=== PATIENT | male | born 1940 | race Caucasian/White ===

== ENCOUNTER → 2018-03-12 | Outpatient (CLI) | payer BC ==
[~2018-03-12] MED LIST: REGADENOSON 0.4 MG/5 ML DISP.SYRIN. IV
== END | disposition home or self-care (01) ==
LOC: NM 10:29
DX: I73.9 Peripheral vascular disease, unspecified (principal); M25.512 Pain in left shoulder; I12.9 Hypertensive chronic kidney disease with stage 1 through stage 4 chronic kidney disease, or unspecified chronic kidney disease; E11.21 Type 2 diabetes mellitus with diabetic nephropathy; N18.3 Chronic kidney disease, stage 3 (moderate); E78.00 Pure hypercholesterolemia, unspecified; E78.5 Hyperlipidemia, unspecified; I25.10 Atherosclerotic heart disease of native coronary artery without angina pectoris; Z79.4 Long term (current) use of insulin; Z87.891 Personal history of nicotine dependence
CPT/HCPCS: 78452; 93017; 93925; 96374; 96376; A9500

== ENCOUNTER 2019-01-19 03:44 | Emergency (ER) | payer BC ==
[~2019-01-19] VITALS: Ht 165.1 cm; Wt 98.0 kg
[~2019-01-19 03:44] MED LIST changes: +AMLO10TA4 PO; +AMLO5TAB10 PO; +ASCO100065 PO; +ASPI-252 PO; +ASPI-630 PO; +ATOR40TA PO; +INSU100C4 SQ; +INSU100V8 SQ; +Lisinopril PO; +METO25TA4 PO; +MULT-245 PO; +Metoprolol Tartrate PO; +OMEG1CAP6 PO; +Oxycodone Hcl/Acetaminophen PO; +PIOG30TA62 PO; +POLY119P4 PO; +PRAV80TA2 PO; -REGADENOSON 0.4 MG/5 ML DISP.SYRIN. IV
[2019-01-19 03:59] VITALS: BP 180/92
--- NOTE | 2019-01-19 04:06 | PHYS DOC ---
Past Medical History Past Medical History: CAD, Renal Disease Past Surgical History: Cholecystectomy, Other Additional Past Surgical Histo: cardiac stent Smoking: Quit Greater Than 1 Year Alcohol Use: None Drug Use: None Adult General Chief Complaint Chief Complaint: RIB PAIN HPI HPI Patient is a 78 year old male who presents with left chest injury. Patient was at a rock climbing gym, stepping off of a thick foam pad and missed the step. He fell injuring his left chest at approximately 1300 yesterday. Initially it did not hurt however pain has been worsening over time. He gets worse with deep breaths as well as a cough. Patient has taken no medicine for pain. He reports that he has stage III kidney disease and is not allowed to take anti- inflammatories because of this.[] Review of Systems Review of Systems Constitutional: Denies fever or chills [] Eyes: Denies change in visual acuity, redness, or eye pain [] HENT: Denies nasal congestion or sore throat [] Respiratory: Denies cough or shortness of breath [] Cardiovascular: No palpitations. No additional information not addressed in HPI [] GI: Denies abdominal pain, nausea, vomiting, bloody stools or diarrhea [] : Denies dysuria or hematuria [] Musculoskeletal: Denies back pain or joint pain [] Integument: Denies rash or skin lesions [] Neurologic: Denies headache, focal weakness or sensory changes [] Endocrine: Denies polyuria or polydipsia [] All other systems were reviewed and found to be within normal limits, except as documented in this note. Current Medications Current Medications Current Medications Medications (Trade) Dose Ordered Amg [facility] Start Time Stop Time Status Last Admin Dose Admin Acetaminophen (Tylenol) 500 mg 1X ONCE 01/19/19 04:30 01/19/19 04:31 01/19/19 04:13 500 MG Allergies Allergies Allergies Coded Allergies Type Severity Reaction Last Updated Verified codeine Adverse Reaction Intermediate Nausea and Vomiting 08/24/15 Yes Physical Exam Physical Exam Constitutional: Well developed, well nourished, no acute distress, non-toxic appearance. [] HENT: Normocephalic, atraumatic, bilateral external ears normal, oropharynx moist, no oral exudates, nose normal. [] Eyes: PERRLA, EOMI, conjunctiva normal, no discharge. [] Neck: Normal range of motion, no tenderness, supple, no stridor. [] Cardiovascular:Heart rate regular rhythm, no murmur [] Lungs & Thorax: Bilateral breath sounds clear to auscultation. There is tenderness to palpation in the left anterior axillary line at approximately the sixth to seventh rib. There is no crepitus. No subcutaneous emphysema. No flail segment noted with respirations. [] Abdomen: Bowel sounds normal, soft, no tenderness, no masses, no pulsatile masses. No splenic tenderness[] Skin: Warm, dry, no erythema, no rash. [] Back: No tenderness, no CVA tenderness. [] Extremities: No tenderness, no cyanosis, no clubbing, ROM intact, no edema. [] Neurologic: Alert and oriented X 3, normal motor function, normal sensory function, no focal deficits noted. [] Psychologic: Affect normal, judgement normal, mood normal. [] Current Patient Data Vital Signs Vital Signs Date Time Temp Pulse Resp B/P (MAP) Pulse Ox O2 Delivery O2 Flow Rate FiO2 01/19/19 03:59 98.2 84 16 180/92 (121) 97 Nasal Cannula 2.0 98.2 EKG EKG [] Radiology/Procedures Radiology/Procedures Chest x-ray and rib x-rays shows no infiltrate, no effusion, no hemothorax, and no pneumothorax[] Course & Med Decision Making Course & Med Decision Making Pertinent Labs and Imaging studies reviewed. (See chart for details) ED course: Patient arrived, was placed in bed, and tolerated exam well. Patient was initially just requesting to have his ribs "bound up." Explained to him that this treatment is no longer the standard of care and he grudgingly accepted pain medicine. Since he drove himself to the emergency department will forego narcotic pain medicine. Patient is not actually the allergic to codeine, he gets nausea and vomiting. He was transported to and from x-ray with any complications. After return of the imaging findings, these were discussed with the patient who voiced understanding. All questions were answered. Patient was discharged in improved condition. Medical decision making: There is no evidence of pneumothorax, hemothorax, pneumonia, nor significant rib injury[] Dragon Disclaimer Dragon Disclaimer This electronic medical record was generated, in whole or in part, using a voice recognition dictation system. Departure Departure Impression: Primary Impression: Rib injury Disposition: HOME, SELF-CARE Condition: IMPROVED Referrals: VONNIE HUNTLEY MD (PCP) Follow-up in 2 days Patient Instructions: Rib Contusion Additional Instructions: Follow-up with your regular doctor in 2 days. Use the incentive spirometer at least every hour while awake. Return to the ER if worsening pain, difficulty breathing, or any other concerns Scripts Tramadol Hcl (TRAMADOL HCL) 50 Mg Tablet 50 MG PO Q6HRS PRN for PAIN, #20 TAB Prov: PORITA ORNELAS DO 01/19/19 Acetaminophen (TYLENOL) 325 Mg Tablet 1-2 TAB PO QID, #60 TAB 0 Refills Prov: PORTIA ORNELAS DO 01/19/19 PORTIA ORNELAS DO Jan 19, 2019 04:06
[2019-01-19] MEDS ORDERED: ACETAMINOPHEN 500 MG TABLET PO ONE (04:30)
[2019-01-19] MEDS ORDERED: ACET325T9 PO (04:39)
[2019-01-19] MEDS ORDERED: TRAM50TA PO (04:39)
--- NOTE | 2019-01-19 07:35 | RAD ---
Left RIBS AP and oblique views with one view chest HISTORY: Fall, left mid to lower rib pain AP view was taken of the chest. There is no pneumothorax or pleural effusion. The patient is not taken a deep inspiration. There are changes from bypass surgery. There are no acute infiltrates. 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 An acute rib fracture is not identified. IMPRESSION: 1. No acute chest disease. 2. No rib fracture noted. Electronically signed by: Jewel Hester MD (01/19/2019 7:32 AM) [facility]
== END 2019-01-19 04:58 | disposition home or self-care (01) ==
LOC: ER 03:44
DX: S29.9XXA Unspecified injury of thorax, initial encounter (principal); I25.10 Atherosclerotic heart disease of native coronary artery without angina pectoris; Z87.891 Personal history of nicotine dependence; Z95.5 Presence of coronary angioplasty implant and graft; Z88.5 Allergy status to narcotic agent; W10.8XXA Fall (on) (from) other stairs and steps, initial encounter; Y93.31 Activity, mountain climbing, rock climbing and wall climbing; Y92.39 Other specified sports and athletic area as the place of occurrence of the external cause; Y99.8 Other external cause status
CPT/HCPCS: 71101; 99284

== ENCOUNTER → 2020-04-06 | Outpatient (CLI) | payer BC ==
[~2020-04-06] MED LIST changes: +ACET325T9 PO; +TRAM50TA PO
--- NOTE | 2020-04-06 12:46 | CARD ---
MR#: [id number] Date of Study: 04/06/2020 Ordering Physician: BRENDA MIKE, Referring Physician: BRENDA MIKE, Tech: Arlene Linares [facility] APPROVED REPORT EXAM: Two-dimensional and M-mode echocardiogram with Doppler and color Doppler. Other Information Quality : Good INDICATION Dyspnea Surgery/Intervention CABG: Date: 09/2015 2D DIMENSIONS RVDd3.4 (2.9-3.5cm)Left Atrium(2D)4.2 (1.6-4.0cm) IVSd1.0 (0.7-1.1cm)Aortic Root(2D)3.4 (2.0-3.7cm) LVDd5.4 (3.9-5.9cm)LVOT Diameter2.3 (1.8-2.4cm) PWd0.9 (0.7-1.1cm)LVDs4.2 (2.5-4.0cm) FS (%) 22.4 %SV62.5 ml LVEF(%)44.8 (>50%) Aortic Valve AoV Peak Regis.137.2cm/sAoV VTI29.5cm AO Peak GR.7.5mmHgLVOT Peak Regis.88.1cm/s AO Mean GR.4mmHgAVA (VMAX)2.75cm2 KIRA (VTI)3.10cm2 Mitral Valve MV E Ylrexmok911.9cm/sMV DECEL [id number] MV A Kvnafokb59.6cm/sE/A Ratio1.9 Tricuspid Valve TR P. Onlsdnrr705ug/sRAP UPBKOAGM9ciFn TR Peak Gr.66hlMpUOTV47wuAf Pulmonary Vein S1 Fjmqrfqk02.2cm/sD2 Etairiao959.6cm/s LEFT VENTRICLE The left ventricle is normal size. There is normal left ventricular wall thickness. Left ventricle sy stolic function is mildly impaired. The Ejection Fraction is 45-50%. There is mild global hypokinesis . Transmitral Doppler flow pattern is Grade II-pseudonormal filling dynamics. RIGHT VENTRICLE The right ventricle is normal size. The right ventricular systolic function is normal. ATRIA The left atrium is moderately dilated. The right atrium is mildly dilated. The interatrial septum is intact with no evidence for an atrial septal defect or patent foramen ovale as noted on 2-D or Dopple r imaging. AORTIC VALVE The aortic valve is calcified but opens well. Doppler and Color Flow revealed no significant aortic r egurgitation. There is no significant aortic valvular stenosis. MITRAL VALVE The mitral valve is calcified but opens well. Mitral annular calcification is mild. There is no lissett l valve stenosis. Doppler and Color-flow revealed mild to moderate mitral regurgitation. TRICUSPID VALVE The tricuspid valve is normal in structure and function. Doppler and Color Flow revealed trace tricus pid regurgitation. The PA pressure was estimated at 24 mmHg. There is no tricuspid valve stenosis. PULMONIC VALVE The pulmonic valve is not well visualized. Doppler and Color Flow revealed no pulmonic valvular regur gitation. There is no pulmonic valvular stenosis. GREAT VESSELS The aortic root is normal in size. The ascending aorta is mildly dilated at 3.5 cm. The IVC is normal in size and collapses >50% with inspiration. PERICARDIAL EFFUSION There is no evidence of significant pericardial effusion. Critical Notification Critical Value: No <Conclusion> Left ventricle systolic function is mildly impaired. The Ejection Fraction is 45-50%. There is mild global hypokinesis. Doppler and Color-flow revealed mild to moderate mitral regurgitation. The ascending aorta is mildly dilated at 3.5 cm. Signed by : Brenda Mike, Electronically Approved : 04/06/2020 12:46:13
--- NOTE | 2020-04-06 12:48 | RAD ---
MR#: [id number] Date of Study: 04/06/2020 Ordering Physician: BRENDA MIKE, Referring Physician: BRENDA MIKE, Tech: Leigh Ann Gaming RDMS, RVT, RTR APPROVED REPORT Bilateral Lower Extremity Venous Study for DVT Patient Location: OUT-PATIENT Indications Lower Extremity Edema: Bilateral Findings The bilateral lower extremity deep veins were evaluated for thrombus with color Doppler, spectral and grayscale images. On the right the grayscale images of the common femoral, superficial femoral and popliteal veins do n ot demonstrate any evidence of thrombus and these veins appear to be compressible. The below-knee vei ns were not well visualized but grossly appear to be compressible. Spectral imaging and color Doppler do not reveal any evidence of obstruction to flow with normal respirophasic variation above the knee . Below the knee there is spontaneous flow noted. On the left, the grayscale images of the common femoral, superficial femoral and popliteal veins do n ot demonstrate any evidence of thrombus and these veins appear to be compressible. The below-knee vei ns again were not well visualized but grossly appear to be compressible. Spectral imaging and color D oppler do not reveal any evidence of obstruction to flow with normal respirophasic variation above th e knee. The below-knee veins demonstrate spontaneous flow. Critical Notification Critical Value: No <Conclusion> No evidence of DVT in the BLE Signed by : Brenda Mike, Electronically Approved : 04/06/2020 12:47:41
== END | disposition home or self-care (01) ==
LOC: ECHO 10:54
PROVIDERS: ATTEND Internal Medicine Cardiovascular Disease
DX: I08.0 Rheumatic disorders of both mitral and aortic valves (principal); R60.0 Localized edema
CPT/HCPCS: 93306; 93970

== ENCOUNTER 2021-03-22 13:33 | Emergency (ER) | payer BC ==
[~2021-03-22] VITALS: Ht 165.1 cm; Wt 100.0 kg
[~2021-03-22 13:33] MED LIST changes: +AMLO-186 PO; -AMLO5TAB10 PO; +AMOX1TAB58 PO; +HYDR-2761 PO
[2021-03-22 14:23] VITALS: BP 150/64
--- NOTE | 2021-03-22 15:24 | RAD ---
EXAM: Right femur, 2 views; pelvis and right hip, 3 views. HISTORY: Fall. Pain. COMPARISON: None. FINDINGS: Pelvis and right hip: A frontal view of the pelvis and 2 views of the right hip are obtained. There i s no acute fracture, dislocation or subluxation. There is degenerative change involving the lower lum bar spine. The femoral heads are normal in configuration. There are suspected os acetabula. There are surgical clips within the right hemipelvis. Right femur: 2 views of the right femur are obtained. There is a right knee arthroplasty in expected position. Evaluation for knee effusion is limited due to image projection. There is no evidence of a periprosthetic fracture. IMPRESSION: No acute osseous finding. Electronically signed by: Claire Gottlieb MD (03/22/2021 3:22 PM) [id number]
--- NOTE | 2021-03-22 15:34 | RAD ---
EXAM: Head and cervical spine CT without contrast. HISTORY: Fall. Pain.. TECHNIQUE: Computed tomographic images of the head and cervical spine were obtained without contrast. *One or more of the following individualized dose reduction techniques were utilized for this examina tion: 1. Automated exposure control. 2. Adjustment of the mA and/or kV according to patient size. 3. Use of iterative reconstruction technique. COMPARISON: None. FINDINGS: Head: There is no hemorrhage. There is no mass effect or midline shift. There are scattered areas of hypodensity throughout the cerebral white matter, likely due to chronic small vessel disease. There a re chronic infarcts within the bilateral basal ganglia and right thalamus. There is evidence of lens surgery. The paranasal sinuses and mastoid air cells are unremarkable. No suspicious calvarial lesion is seen. Cervical spine: There is mild reversal cervical lordosis. There is no significant listhesis. There is multilevel endplate remodeling with disc space narrowing, osteophytosis and Schmorl's node formation . There is multilevel facet arthropathy. The combination of degenerative changes results in mild left foraminal stenosis at C2-C3, moderate to severe lateral foraminal and mild central canal stenosis at C3-C4 and C4-C5, moderate right and severe left foraminal and moderate central canal stenosis at C5- C6, and mild right and moderate left foraminal and mild central canal stenosis at C6-C7. IMPRESSION: 1. No acute intracranial finding or evidence of acute cervical spine trauma. 2. Bilateral cerebral white matter changes, likely due to chronic small vessel disease. 3. Small chronic lacunar infarcts within the basal ganglia and right thalamus. 4. 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 Electronically signed by: Claire Gottlieb MD (03/22/2021 3:31 PM) [id number]
--- NOTE | 2021-03-22 16:54 | PHYS DOC ---
Past Medical History Past Medical History: CAD, Cancer, Diabetes-Type II, High Cholesterol, Hy pertension, [place], Renal Disease Additional Past Medical Histor: LEUKEMIA Past Surgical History: Appendectomy, Cholecystectomy, Other Additional Past Surgical Histo: cardiac stent Smoking Status: Former Smoker Alcohol Use: None Drug Use: None General Adult EDM: Chief Complaint: LOWEREXTREMITY INJURY HPI: HPI: Patient is a 80 year old male who presents to the ED today complaining of mild pain to the right femur that began 2 days ago after falling. Patient states the pain is only on palpation. Patient states he has had multiple falls and this is not a new thing for him. Patient states he hit his head done when he fell. Denies any loss of consciousness. Denies any neck pain. Reports the pain is worse on weightbearing. He states he is on a baby aspirin. Review of Systems: Review of Systems: Constitutional: Denies fever or chills. [] Eyes: Denies change in visual acuity. [] HENT: Denies nasal congestion or sore throat. [] Respiratory: Denies cough or shortness of breath. [] Cardiovascular: Denies chest pain or edema. [] GI: Denies abdominal pain, nausea, vomiting, bloody stools or diarrhea. [] : Denies dysuria. [] Musculoskeletal: Reports right femur pain Integument: Denies rash. [] Neurologic: Reports falling and hitting the head, denies focal weakness or sensory changes. [] Endocrine: Denies polyuria or polydipsia. [] Psychiatric: Denies depression or anxiety. [] Heart Score: C/O Chest Pain: N/A Risk Factors: Risk Factors: DM, Current or recent (<one month) smoker, HTN, HLP, family history of CAD, obesity. Risk Scores: Score 0 - 3: 2.5% MACE over next 6 weeks - Discharge Home Score 4 - 6: 20.3% MACE over next 6 weeks - Admit for Clinical Observation Score 7 - 10: 72.7% MACE over next 6 weeks - Early Invasive Strategies Allergies: Allergies: Allergies Coded Allergies Type Severity Reaction Last Updated Verified codeine Adverse Reaction Intermediate Nausea and Vomiting 08/24/15 Yes Physical Exam: PE: Constitutional: Well developed, well nourished, no acute distress, non-toxic appearance. [] HENT: Normocephalic, atraumatic, bilateral external ears normal, oropharynx moist, no oral exudates, nose normal. [] Eyes: PERRLA, EOMI, conjunctiva normal, no discharge. [] Neck: Normal range of motion, no tenderness, supple, no stridor. [] Cardiovascular:Heart rate regular rhythm, no murmur [] Lungs & Thorax: Bilateral breath sounds clear to auscultation [] Abdomen: Bowel sounds normal, soft, no tenderness, no masses, no pulsatile masses. [] Skin: Warm, dry, no erythema, no rash. [] Back: No tenderness, no CVA tenderness. [] Extremities: Bilateral lower extremities with no obvious deformity. Diffuse tenderness on palpation of the right lateral femur, no cyanosis, no clubbing, ROM intact, no edema. [] Neurologic: Alert and oriented X 3, normal motor function, normal sensory function, no focal deficits noted. Cranial nerves II through XII intact Psychologic: Affect normal, judgement normal, mood normal. [] Current Patient Data: Vital Signs: Vital Signs Date Time Temp Pulse Resp B/P (MAP) Pulse Ox O2 Delivery O2 Flow Rate FiO2 03/22/21 14:23 98.1 75 12 150/64 (92) 95 Room Air 98.1 EKG: EKG: [] Radiology/Procedures: Radiology/Procedures: []PROCEDURE: HIP RIGHT 2V WITH PELVIS EXAM: Right femur, 2 views; pelvis and right hip, 3 views. HISTORY: Fall. Pain. COMPARISON: None. FINDINGS: Pelvis and right hip: A frontal view of the pelvis and 2 views of the right hip are obtained. There is no acute fracture, dislocation or subluxation. There is degenerative change involving the lower lumbar spine. The femoral heads are normal in configuration. There are suspected os acetabula. There are surgical clips within the right hemipelvis. Right femur: 2 views of the right femur are obtained. There is a right knee arthroplasty in expected position. Evaluation for knee effusion is limited due to image projection. There is no evidence of a periprosthetic fracture. IMPRESSION: No acute osseous finding. Electronically signed by: Claire Gottlieb MD (03/22/2021 3:22 PM) [id number] DICTATED and SIGNED BY: CLAIRE GOTTLIEB MD DATE: 03/22/21 [id number] 0 PROCEDURE: CT HEAD AND CERVICAL SPINE WO EXAM: Head and cervical spine CT without contrast. HISTORY: Fall. Pain.. TECHNIQUE: Computed tomographic images of the head and cervical spine were obtained without contrast. *One or more of the following individualized dose reduction techniques were utilized for this examination: 1. Automated exposure control. 2. Adjustment of the mA and/or kV according to patient size. 3. Use of iterative reconstruction technique. COMPARISON: None. FINDINGS: Head: There is no hemorrhage. There is no mass effect or midline shift. There are scattered areas of hypodensity throughout the cerebral white matter, likely due to chronic small vessel disease. There are chronic infarcts within the bilateral basal ganglia and right thalamus. There is evidence of lens surgery. The paranasal sinuses and mastoid air cells are unremarkable. No suspicious calvarial lesion is seen. Cervical spine: There is mild reversal cervical lordosis. There is no significant listhesis. There is multilevel endplate remodeling with disc space narrowing, osteophytosis and Schmorl's node formation. There is multilevel facet arthropathy. The combination of degenerative changes results in mild left foraminal stenosis at C2-C3, moderate to severe lateral foraminal and mild central canal stenosis at C3-C4 and C4-C5, moderate right and severe left foraminal and moderate central canal stenosis at C5-C6, and mild right and moderate left foraminal and mild central canal stenosis at C6-C7. IMPRESSION: 1. No acute intracranial finding or evidence of acute cervical spine trauma. 2. Bilateral cerebral white matter changes, likely due to chronic small vessel disease. 3. Small chronic lacunar infarcts within the basal ganglia and right thalamus. 4. 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 Electronically signed by: Claire Gottlieb MD (03/22/2021 3:31 PM) [id number] DICTATED and SIGNED BY: CLAIRE GOTTLIEB MD DATE: 03/22/21 [id number] 0 PROCEDURE: FEMUR RIGHT EXAM: Right femur, 2 views; pelvis and right hip, 3 views. HISTORY: Fall. Pain. COMPARISON: None. FINDINGS: Pelvis and right hip: A frontal view of the pelvis and 2 views of the right hip are obtained. There is no acute fracture, dislocation or subluxation. There is degenerative change involving the lower lumbar spine. The femoral heads are normal in configuration. There are suspected os acetabula. There are surgical clips within the right hemipelvis. Right femur: 2 views of the right femur are obtained. There is a right knee arthroplasty in expected position. Evaluation for knee effusion is limited due to image projection. There is no evidence of a periprosthetic fracture. IMPRESSION: No acute osseous finding. Electronically signed by: Claire Gottlieb MD (03/22/2021 3:22 PM) [id number] DICTATED and SIGNED BY: CLAIRE GOTTLIEB MD DATE: 03/22/21 [id number] 0 Course & Med Decision Making: Course & Med Decision Making Pertinent Labs and Imaging studies reviewed. (See chart for details) This is a 80-year-old male patient presenting to the ED today with right femur pain that began 2 days ago after falling. CT of the head and cervical spine are negative, right hip x-rays including right femur x-rays are negative. Patient himself interested in going home. He lives with his son who assist him. He was discharged to home, follow-up with PCP. William Disclaimer: William Disclaimer: This electronic medical record was generated, in whole or in part, using a voice recognition dictation system. Departure Departure Impression: Primary Impression: Fall Qualified Codes: W19.XXXA - Unspecified fall, initial encounter Additional Impression: Contusion of hip, right Qualified Codes: S70.01XA - Contusion of right hip, initial encounter Disposition: HOME / SELF CARE / HOMELESS Condition: STABLE Referrals: MICHELLE CARDENAS MD (PCP) follow up in the course of this week Patient Instructions: Contusion, [id number], Fall Prevention and Home Safety Additional Instructions: You were evaluated in the emergency room for right femur pain, your right femur x-ray, right hip x-rays including pelvis, CT of the head and cervical spine are negative for any acute findings. Follow-up with your primary care doctor. Apply ice to the affected areas. Come back to the ED at any point symptoms worsen FLORIN ALEXANDER APRN March 22, 2021 16:54
== END 2021-03-22 17:01 | disposition home or self-care (01) ==
LOC: ER 13:33
DX: S70.01XA Contusion of right hip, initial encounter (principal); I25.10 Atherosclerotic heart disease of native coronary artery without angina pectoris; E11.9 Type 2 diabetes mellitus without complications; E78.00 Pure hypercholesterolemia, unspecified; I10 Essential (primary) hypertension; I25.2 Old myocardial infarction; Z87.891 Personal history of nicotine dependence; Z95.5 Presence of coronary angioplasty implant and graft; Z90.89 Acquired absence of other organs; Z90.49 Acquired absence of other specified parts of digestive tract; Z88.5 Allergy status to narcotic agent; W18.39XA Other fall on same level, initial encounter; Y93.89 Activity, other specified; Y92.89 Other specified places as the place of occurrence of the external cause; Y99.8 Other external cause status
CPT/HCPCS: 70450; 72125; 73502; 99285-25

== ENCOUNTER 2021-05-15 09:36 | Emergency (ER) | payer BC ==
[~2021-05-15] VITALS: Ht 175.3 cm; Wt 110.0 kg
[~2021-05-15 09:36] MED LIST changes: +GABA300C18 PO; +INSU100V35 SQ; +PANT40TA77 PO; +Warfarin Per Pharmacy MC
[2021-05-15] MEDS ORDERED: IV NORMAL SALINE 1000ML BAG 1,000 ML IV ONE ×2 (10:30→12:15)
[2021-05-15 11:01] LABS: BASO # 0.1 x10^3/uL (0.0-0.2); BASO % 1 % (0-3); EOS # 0.1 x10^3/uL (0.0-0.7); EOS % 1 % (0-3); HEMATOCRIT 27.4 % (39.0-53.0); HEMOGLOBIN 8.3 g/dL (13.0-17.5); LYMPH # 6.8 x10^3/uL (1.0-4.8); MEAN CORPUSCULAR HEMOGLOBIN 24 pg (25-35); MEAN CORPUSCULAR HGB CONC 30 g/dL (31-37); MEAN CORPUSCULAR VOLUME 81 fL (79-100); MONO # 0.8 x10^3/uL (0.0-1.1); MONO % 7 % (0-9); NEUT # 3.4 x10^3/uL (1.8-7.7); NEUT % 30 % (31-73); PLATELET COUNT 280 x10^3/uL (140-400); RED CELL DISTRIBUTION WIDTH 20.6 % (11.5-14.5); WHITE BLOOD COUNT 11.2 x10^3/uL (4.0-11.0)
[2021-05-15 11:21] LABS: ALBUMIN 2.2 g/dL (3.4-5.0); ALBUMIN/GLOBULIN RATIO 0.6 (1.0-1.7); CREATININE 0.8 mg/dL (0.7-1.3); GFR 93.3; MAGNESIUM 2.1 mg/dL (1.8-2.4); POTASSIUM 4.1 mmol/L (3.5-5.1); TOTAL BILIRUBIN 0.8 mg/dL (0.2-1.0); TOTAL PROTEIN 5.9 g/dL (6.4-8.2)
[2021-05-15 11:30] LABS: CALCIUM 12.1 mg/dL (8.5-10.1)
[2021-05-15 12:06] LABS: % ATYL 4 % (0-0); % BANDS 4 % (0-9); % EOS 1 % (0-5); % LYMPHS 57 % (24-48); % MONOS 8 % (0-10); % MYELOS 1 % (0-0); % SEGS 23 % (35-66); NUCLEATED RBC 1
[2021-05-15 12:07] LABS: PLT ESTIMATE ADEQUATE (ADEQUATE)
[2021-05-15 12:14] LABS: % OTHERS 0 % (0-0); SMUDGE CELLS PRESENT
--- NOTE | 2021-05-15 14:12 | PHYS DOC ---
Past Medical History Past Medical History: CAD, Cancer, Diabetes-Type II, High Cholesterol, Hypertension, [place], Renal Disease Additional Past Medical Histor: Neuropathy, Leukemia Past Surgical History: Coronary Bypass Surgery, Other Additional Past Surgical Histo: Unknown surgery history Smoking Status: Former Smoker Alcohol Use: None Drug Use: None General Adult EDM: Chief Complaint: WEAKNESS/GENERALIZED HPI: HPI: Patient is a 81 year old male who was brought here for [facility] for generalized weakness and dehydration. Patient has a history of coronary artery disease, diabetic, hypertension, CHF, dementia, at baseline is nonverbal, history of PE, was in rehab for about 5 weeks now, he was scheduled to be released from the rehab center to be taken home so that he can be entered into hospice care. Patient's son wanted him to come to ER for IV fluids first because he is concerned that patient is dehydrated. His son stated that patient had not been eating or drinking much lately. Patient is bedbound. Review of Systems: Review of Systems: Not able to obtain due to patient condition Heart Score: C/O Chest Pain: N/A Risk Factors: Risk Factors: DM, Current or recent (<one month) smoker, HTN, HLP, family history of CAD, obesity. Risk Scores: Score 0 - 3: 2.5% MACE over next 6 weeks - Discharge Home Score 4 - 6: 20.3% MACE over next 6 weeks - Admit for Clinical Observation Score 7 - 10: 72.7% MACE over next 6 weeks - Early Invasive Strategies Current Medications: Current Medications Medications (Trade) Dose Ordered Sig/[facility] Start Time Stop Time Status Last Admin Dose Admin Sodium Chloride 1,000 ml @ 1,000 mls/hr 1X ONCE 05/15/21 12:15 05/15/21 13:14 DC 05/15/21 13:26 1,000 MLS/HR Allergies: Allergies: Allergies Coded Allergies Type Severity Reaction Last Updated Verified codeine Adverse Reaction Intermediate Nausea and Vomiting 08/24/15 Yes Physical Exam: PE: Constitutional: Well developed, well nourished, no acute distress, non-toxic appearance. [] HENT: Normocephalic, atraumatic, bilateral external ears normal, oropharynx dry , no oral exudates, nose normal. [] Eyes: PERRLA, EOMI, conjunctiva normal, no discharge. [] Neck: Normal range of motion, no tenderness, supple, no stridor. [] Cardiovascular:Heart rate regular rhythm, no murmur [] Lungs & Thorax: Bilateral breath sounds clear to auscultation [] Abdomen: Bowel sounds normal, soft, no tenderness, no masses, no pulsatile masses. [] Skin: Warm, dry, no erythema, no rash. Appear pale Back: No tenderness, no CVA tenderness. [] Extremities: No tenderness, no cyanosis, bilateral lower extremity edema, pitting, 2+ Neurologic: Patient is awake alert, however he is nonverbal. Patient was tracking, responsive to pain Psychologic: Flat affect Current Patient Data: Labs: Laboratory Tests Test 05/15/21 10:40 White Blood Count 11.2 x10^3/uL (4.0-11.0) H Red Blood Count 3.40 x10^6/uL (4.30-5.70) L Hemoglobin 8.3 g/dL (13.0-17.5) L Hematocrit 27.4 % (39.0-53.0) L Mean Corpuscular Volume 81 fL (79-100) Mean Corpuscular Hemoglobin 24 pg (25-35) L Mean Corpuscular Hemoglobin Concent 30 g/dL (31-37) L Red Cell Distribution Width 20.6 % (11.5-14.5) H Platelet Count 280 x10^3/uL (140-400) Neutrophils (%) (Auto) 30 % (31-73) L Lymphocytes (%) (Auto) 61 % (24-48) H Monocytes (%) (Auto) 7 % (0-9) Eosinophils (%) (Auto) 1 % (0-3) Basophils (%) (Auto) 1 % (0-3) Neutrophils # (Auto) 3.4 x10^3/uL (1.8-7.7) Lymphocytes # (Auto) 6.8 x10^3/uL (1.0-4.8) H Monocytes # (Auto) 0.8 x10^3/uL (0.0-1.1) Eosinophils # (Auto) 0.1 x10^3/uL (0.0-0.7) Basophils # (Auto) 0.1 x10^3/uL (0.0-0.2) Segmented Neutrophils % 23 % (35-66) L Band Neutrophils % 4 % (0-9) Lymphocytes % 57 % (24-48) H Atypical Lymphocytes % (Manual) 4 % (0-0) H Monocytes % 8 % (0-10) Eosinophils % 1 % (0-5) Myelocytes % 1 % (0-0) H Other Cells % 0 % (0-0) Nucleated Red Blood Cells 1 Smudge Cells Present Platelet Estimate Adequate (ADEQUATE) Sodium Level 147 mmol/L (136-145) H Potassium Level 4.1 mmol/L (3.5-5.1) Chloride Level 108 mmol/L (98-107) H Carbon Dioxide Level 36 mmol/L (21-32) H Anion Gap 3 (6-14) L Blood Urea Nitrogen 25 mg/dL (8-26) Creatinine 0.8 mg/dL (0.7-1.3) Estimated GFR (Cockcroft-Gault) 93.3 BUN/Creatinine Ratio 31 (6-20) H Glucose Level 113 mg/dL (70-99) H Calcium Level 12.1 mg/dL (8.5-10.1) *H Magnesium Level 2.1 mg/dL (1.8-2.4) Total Bilirubin 0.8 mg/dL (0.2-1.0) Aspartate Amino Transferase (AST) 28 U/L (15-37) Alanine Aminotransferase (ALT) 20 U/L (16-63) Alkaline Phosphatase 80 U/L (46-116) Total Protein 5.9 g/dL (6.4-8.2) L Albumin 2.2 g/dL (3.4-5.0) L Albumin/Globulin Ratio 0.6 (1.0-1.7) L Laboratory Tests 05/15/21 10:40 Laboratory Tests 05/15/21 10:40 Vital Signs: Vital Signs Date Time Temp Pulse Resp B/P (MAP) Pulse Ox O2 Delivery O2 Flow Rate FiO2 05/15/21 09:36 99.2 76 18 138/65 100 Nasal Cannula 4.0 99.2 EKG: EKG: [] Radiology/Procedures: Radiology/Procedures: [] Course & Med Decision Making: Course & Med Decision Making Pertinent Labs and Imaging studies reviewed. (See chart for details) Patient is a 81-year-old male who is DNR was brought here by EMS from [facility] due to weakness. Patient was found to be dehydrated. His calcium level was elevated. Patient was given IV fluid in the ER, 2 L total. Patient's son would like to take him home so he can enroll in hospice care. Patient will be discharged home by ambulance. Karlon Disclaimer: William Disclaimer: This electronic medical record was generated, in whole or in part, using a voice recognition dictation system. Departure Departure Impression: Primary Impression: Dehydration Additional Impression: Hypercalcemia Disposition: HOME / SELF CARE / HOMELESS Condition: STABLE Referrals: MICHELLE CARDENAS MD (PCP) Follow-up with your doctor as needed. Patient Instructions: Dehydration, Adult, Hypercalcemia Additional Instructions: Thank you for visiting our Emergency Department. We appreciate you trusting us with your care. If any additional problems come up don't hesitate to return to visit us. Please follow up with your primary care provider so they can plan additional care if needed and know about the problem that you had. If symptoms worsen come back to the Emergency Department. Any concerning symptoms that start such as chest pain, shortness of air, weakness or numbness on one side of the body, running high fevers or any other concerning symptoms return to the ER. LUCAS PERALTA DO May 15, 2021 14:12
[2021-05-15 15:10] VITALS: BP 146/69
[2021-05-18 12:30] LABS: LYMPH % 61 % (24-48)
== END 2021-05-15 16:15 | disposition home or self-care (01) ==
LOC: ER 09:36
DX: E86.0 Dehydration (principal); E83.52 Hypercalcemia; I25.810 Atherosclerosis of coronary artery bypass graft(s) without angina pectoris; E78.00 Pure hypercholesterolemia, unspecified; I10 Essential (primary) hypertension; I25.2 Old myocardial infarction; E11.40 Type 2 diabetes mellitus with diabetic neuropathy, unspecified; Z88.5 Allergy status to narcotic agent
CPT/HCPCS: 36415; 80053; 83735; 85007; 85025; 96360; 96361; 99285; J7030